=== PATIENT | female | born 1945 | race Two or more races ===

== ENCOUNTER 2017-04-02 08:50 | Day surgery (SDC) | payer OTHER | END 2017-04-02 15:40 | disposition home or self-care (01) | LOC: AMB-ENDOS 08:50 → EDBD 11:30 → AMB-ENDOS 15:40 | DX: K57.30 Diverticulosis of large intestine without perforation or abscess without bleeding (principal); K64.1 Second degree hemorrhoids; K64.8 Other hemorrhoids; K64.2 Third degree hemorrhoids; Z12.11 Encounter for screening for malignant neoplasm of colon ==